=== PATIENT | male | born 2000 | race African-American/Black ===

== ENCOUNTER 2022-01-18 11:42 | Emergency (ER) | payer MEDICAID ==
[~2022-01-18] VITALS: Ht 182.9 cm; Wt 91.0 kg
[2022-01-18] MEDS ORDERED: ACETAMINOPHEN 325MG TABLET PO ONE (14:30)
[2022-01-18] MEDS ORDERED: IBUPROFEN 400MG TABLET PO ONE (14:30)
[2022-01-18 18:22] VITALS: BP 126/75
== END 2022-01-18 18:22 | disposition left against medical advice (07) ==
LOC: ER 11:42
DX: R51.9 Headache, unspecified (principal); M25.531 Pain in right wrist; M25.532 Pain in left wrist
CPT/HCPCS: 73110; 82962; 93005; 99285